=== PATIENT | male | born 1965 | race Two or more races ===

== ENCOUNTER 2017-04-25 06:07 | Day surgery (SDC) | payer OTHER ==
[2017-04-25] VITALS (10 sets, daily range): BP systolic 110–132; BP diastolic 67–94
[~2017-04-25] VITALS: Ht 185.4 cm; Wt 99.8 kg
[~2017-04-25 06:07] MED LIST: Cyclopentolate 1% Opth Sol 2ml LEFT EYE SCH; Phenylephrine 2.5% Op 2ml Soln LEFT EYE SCH; Phenylephrine 2.5% Op 2ml Soln ONE
[2017-04-25] MEDS ORDERED: Cyclopentolate 1% Opth Sol 2ml ONE (06:14)
[2017-04-25] MEDS ORDERED: Cyclopentolate 1% Opth Sol 2ml LEFT EYE SCH (06:30)
[2017-04-25] MEDS: Phenylephrine 2.5% Op 2ml Soln LEFT EYE SCH ×3 (06:34→06:47)
[2017-04-25] MEDS: Cyclopentolate 1% Opth Sol 2ml LEFT EYE SCH ×3 (06:34→06:48)
[2017-04-25] MEDS ORDERED: Kenalog-40 1ml Vial ONE (06:35)
[2017-04-25] MEDS ORDERED: Maxitrol Opth Oint 3.5gm ONE (06:35)
[2017-04-25] MEDS ORDERED: BSS 500ml btl ONE (06:35)
[2017-04-25] MEDS ORDERED: Pred Forte 1% Opth Susp 1ml ONE (06:35)
[2017-04-25] MEDS ORDERED: Tetracaine 0.5% Opth 4ml Soln ONE (06:36)
[2017-04-25] MEDS ORDERED: Kenalog-10 5ml Inj ONE (06:36)
[2017-04-25] MEDS ORDERED: Dexamethasone 4mg/ml vial ONE (06:36)
[2017-04-25] MEDS ORDERED: EPINEPHrine 1mg/1ml Amp ONE (06:36)
[2017-04-25] MEDS ORDERED: Povidone-Iodine 5% opth solution ONE (06:36)
[2017-04-25] MEDS ORDERED: Lidocaine 2% MPF 5ml Vial INJ ONE (06:37)
[2017-04-25] MEDS ORDERED: Bupivacaine 0.75% 30ml vial INJ ONE (06:37)
[2017-04-25] MEDS ORDERED: Goniosol 2.5% Opth Soln - 15ml ONE (06:37)
[2017-04-25] MEDS ORDERED: BSS 15ml BTL ONE (06:37)
--- NOTE | 2017-04-25 06:51 | Pre-Procedure Note/Attestation ---
Pre-Procedure Note/Attestation Complete Prior to Procedure Planned Procedure: left Procedure Narrative: Macula OFF retinal detachment left eye Indications for Procedure Pre-Operative Diagnosis: Macula OFF retinal detachment left eye Attestation I attest that I discussed the nature of the procedure; its benefits; risks and complications; and alternatives (and the risks and benefits of such alternatives ), prior to the procedure, with the patient (or the patient's legal leather goods sales representative). I attest that, if there was a reasonable possibility of needing a blood transfusion, the patient (or the patient's legal leather goods sales representative) was given the [facility] standardized written summary, pursuant to the [place] Blood Safety Act ([place] Health and Safety Code # 1645, as amended). I attest that I re-evaluated the patient just prior to the surgery and that there has been no change in the patient's H&P, except as documented below: WILMER MODI M.D. Apr 25, 2017 06:50
[2017-04-25] MEDS ORDERED: NKM (06:54)
[2017-04-25] MEDS ORDERED: Glycopyrrolate 0.2mg/ml 1ml Vial ONE (07:00)
[2017-04-25] MEDS ORDERED: fentaNYL 100 mcg/2 mL IV ONE (07:00)
[2017-04-25] MEDS ORDERED: Sodium Chloride 10ml vial INJ ONE (07:00)
[2017-04-25] MEDS ORDERED: NS Irrig 1000ml ONE (07:00)
[2017-04-25] MEDS ORDERED: LR 1000ml ONE (07:00)
[2017-04-25] MEDS ORDERED: Ketorolac 30mg Inj ONE (07:00)
[2017-04-25] MEDS ORDERED: Lidocaine 1% MPF 10mg/ml 5ml ONE (07:00)
[2017-04-25] MEDS ORDERED: Sterile Water Irrig 1000ml IRRIG ONE (07:00)
[2017-04-25] MEDS ORDERED: Midazolam 2mg/2ml Inj ONE (07:00)
[2017-04-25] MEDS ORDERED: Propofol 200mg/20ml IV ONE (07:00)
[2017-04-25] MEDS ORDERED: Metoclopramide 10mg/2ml Inj ONE (07:00)
[2017-04-25] MEDS ORDERED: LR 1000ml 1,000 ML IVLG SCH (07:40)
--- NOTE | 2017-04-25 07:44 | Anethesia Preoperative Eval ---
Anesthesia Pre-op PMH/ROS General Date of Evaluation: Apr 25, 2017 Time of Evaluation: 07:00 Anesthesiologist: osman ASA Score: ASA 2 Mallampati Score Class I : Soft palate, uvula, fauces, pillars visible Class II: Soft palate, uvula, fauces visible Class III: Soft palate, base of uvula visible Class IV: Only hard plate visible Mallampati Classification: Class I Surgeon: arnoldo Diagnosis: etinal detachment Surgical Procedure: vitrctomy Anesthesia History: none Family History: no anesthesia problems Allergies: Coded Allergies: No Known Allergies (Unverified , 04/23/17) Medications: see eMAR Anesthesia Pre-op Phys. Exam Physician Exam Last Vital Signs Date Time Temp Pulse Resp B/P (MAP) Pulse Ox O2 Delivery O2 Flow Rate FiO2 04/25/17 06:37 98.4 61 18 132/85 99 Room Air Constitutional: NAD Neurologic: CN 2-12 intact Cardiovascular: RRR Respiratory: CTA Gastrointestinal: S/NT/ND Airway Exam Mallampati Score: Class I MO: full ROM: full Teeth: intact Anesthesia Pre-op A/P Risk Assessment & Plan Plan: mac Pre-Antibiotics Given Within 1 Hr of Incision: Ashvin Wynn M.D. Apr 25, 2017 07:44
[2017-04-25] MEDS ORDERED: Ketorolac 30mg Inj IV PRN (07:45)
[2017-04-25] MEDS ORDERED: DiphenhydrAMINE 50mg/ml Inj IVP PRN (07:45)
[2017-04-25] MEDS ORDERED: fentaNYL 100 mcg/2 mL IV PRN (07:45)
[2017-04-25] MEDS ORDERED: Midazolam 2mg/2ml Inj IVP PRN (07:45)
[2017-04-25] MEDS ORDERED: Metoclopramide 10mg/2ml Inj IVP PRN (07:45)
--- NOTE | 2017-04-25 07:47 | Immediate Post-Op Evaluation ---
Immediate Post-Op Evalulation Immediate Post-Op Evalulation Procedure: Left eye Vitrectomy Date of Evaluation: Apr 25, 2017 Time of Evaluation: 10:00 IV Fluids: 1000 Blood Products: 0 Estimated Blood Loss: 0 Urinary Output: 0 Blood Pressure Systolic: 104 Blood Pressure Diastolic: 64 Pulse Rate: 68 Respiratory Rate: 16 O2 Sat by Pulse Oximetry: 99 Temperature (Fahrenheit): 98 Pain Score (1-10): 0 Nausea: No Vomiting: No Patient Status: awake, reacts, patent Hydration Status: adequate Given Within 1 Hr of Incision: Ashvin Wynn M.D. Apr 25, 2017 07:46
--- NOTE | 2017-04-25 07:48 | 48 Hour Post Anesthesia Eval ---
Post Anesthesia Evaluation Procedure: Left eye Vitrectomy Date of Evaluation: Apr 27, 2017 Time of Evaluation: 10:00 Blood Pressure Systolic: 174 0: 65 Pulse Rate: 66 Respiratory Rate: 15 Temperature (Fahrenheit): 98 O2 Sat by Pulse Oximetry: 99 Airway: patent Nausea: No Vomiting: No Hydration Status: adequate Mental Status/LOC: patient returned to baseline Post-Anesthesia Complications: none Follow-up care needed: patient intructions given Ashvin Jaramillo M.D. Apr 25, 2017 07:48
--- NOTE | 2017-04-25 08:40 | Operative Note - PDOC ---
Operative Note Operative Note Date of Operation/Procedure: Apr 25, 2017 Pre-op Diagnosis: Macula OFF retinal detachment left eye Procedure: ppv/el/afx/c3f8 os Post-op Diagnosis: RD, vh os Post-op Diagnosis: same as pre-op plus Operative Findings: consistent w/pre-op dx studies Surgeon: arnoldo Clerical Proofreader: none Anesthesia: local, MAC Specimen: none Complications: none Condition: stable Estimated Blood Loss: none Drains: none Implant(s) used?: No WILMER MODI M.D. Apr 25, 2017 08:40
[2017-04-25] MEDS ORDERED: Norco 5mg/325mg tab ORAL PRN (08:45)
[2017-04-25] MEDS ORDERED: acetaZOLAMIDE 500mg Sequel ORAL ONE (09:30)
--- NOTE | 2017-04-25 16:31 | Operative Note - Dictated ---
DATE OF OPERATION: 04/25/2017 PREOPERATIVE DIAGNOSES: 1. Macula involving retinal detachment, left eye. 2. Vitreous hemorrhage, left eye. POSTOPERATIVE DIAGNOSES: 1. Macula involving retinal detachment, left eye. 2. Vitreous hemorrhage, left eye. PROCEDURE: Pars plana vitrectomy, endolaser air-fluid exchange C3F8 gas, left eye. PRIMARY SURGEON: Steve Walker M.D. PHYSICIAN NEONATOLOGY: None. ANESTHESIA: Monitored anesthesia care with retrobulbar injection. ESTIMATED BLOOD LOSS: None. IMPLANTS: None. COMPLICATIONS: None. INDICATIONS: The patient had a macula off retinal detachment with severe vision loss. After benefits, alternatives, and risks were discussed, an informed consent was signed. Prognosis was discussed and the patient was told that there will likely be some element of permanent vision loss. DESCRIPTION OF PROCEDURE: The patient was brought to the operating theater and identified. The left eye then received a retrobulbar block using the usual mixture of Marcaine and lidocaine under intravenous sedation with a retrobulbar needle. The left eye was prepped and draped in the usual sterile fashion and a lid speculum was placed. A surgical pause was repeated. A 23-gauge valved trocar/cannula system was inserted in the inferotemporal quadrant at a distance of 3.5 mm posterior to the limbus in an oblique incision pattern with conjunctival displacement . The infusion line was then attached and observed to be in the posterior segment before being turned on. The superotemporal and superonasal cannulae were placed in a similar fashion. The light pipe was placed into the eye and the [employer]ight visualization system was brought into view. A vitrectomy cutter was placed into the eye and core vitrectomy was performed. The patient had a large tear between 12 and 3 o'clock. There were four additional tears between 11 and 12 o'clock that had Laserpexy scars around them. Inferiorly, there was vitreous hemorrhage. There was also several foci of lattice inferiorly. Following core vitrectomy, I performed peripheral vitrectomy with aid of scleral depression provided by my educational program assistant. Next, I used diathermy to felix the breaks and to create a small posterior retinotomy superior to the optic nerve. Endo drainage then was performed with air-fluid exchange and the retina attached beautifully. Laser was given to the retinotomy to the retinal tears under 360 degrees fashion. This included laser around the foci of lattice inferiorly. Next, some additional air-fluid exchange was performed to ensure a complete air fill. The retina was completely attached to this point. The instruments were removed from the eye. A 15% C3F8 gas was diluted by myself and injected through the infusion line and allowed to through the superotemporal cannula. All cannulae were then removed. All sclerotomies were closed with 7-0 Vicryl and all conjunctival defects closed with 6-0 plain gut. Subconjunctival vancomycin and dexamethasone were then injected. The lid speculum and drape were removed. Periocular area cleaned. Atropine drops and Maxitrol ointment were placed on the ocular surface. A 500 mg of Diamox was given orally in the postop area. The patch and shield were then affixed over the closed lids with tape. The patient was taken to recovery area in good spirits and in no pain. He was placed in the face-down position and gas precautions were reviewed in depth. There were no complications. Steve Walker M.D. DR: BASHIR JOB#: [id number] CC:
== END 2017-04-25 10:10 | disposition home or self-care (01) ==
LOC: SUR 06:07
DX: H33.22 Serous retinal detachment, left eye (principal); H43.12 Vitreous hemorrhage, left eye
CPT/HCPCS: 67039; J0171; J0690; J1100; J1885; J2250; J2405; J2704; J2765; J3010; J3370; J3470; J3490; J7120; 94003; 94150

== ENCOUNTER 2017-11-05 07:45 | Day surgery (SDC) | payer OTHER ==
[2017-11-05] VITALS (9 sets, daily range): BP systolic 101–117; BP diastolic 66–75
[~2017-11-05] VITALS: Ht 185.4 cm; Wt 98.4 kg
--- NOTE | 2017-11-05 07:36 | Pre-Procedure Note/Attestation ---
Pre-Procedure Note/Attestation Complete Prior to Procedure Planned Procedure: left Procedure Narrative: cataract extraction with implant left eye Indications for Procedure Pre-Operative Diagnosis: cataract left eye Attestation I attest that I discussed the nature of the procedure; its benefits; risks and complications; and alternatives (and the risks and benefits of such alternatives ), prior to the procedure, with the patient (or the patient's legal product representative). I attest that, if there was a reasonable possibility of needing a blood transfusion, the patient (or the patient's legal product representative) was given the [facility] standardized written summary, pursuant to the [place] Blood Safety Act ([place] Health and Safety Code # 1645, as amended). I attest that I re-evaluated the patient just prior to the surgery and that there has been no change in the patient's H&P, except as documented below: Bebeto Chino MD Nov 05, 2017 07:36
[~2017-11-05 07:45] MED LIST changes: +Akten 3.5% 1ml Btl ONE; +BSS 15ml BTL ONE; +BSS 500ml btl ONE; -Cyclopentolate 1% Opth Sol 2ml LEFT EYE SCH; +Dexamethasone 4mg/ml vial ONE; +EPINEPHrine 1mg/1ml Amp ONE; +Lidocaine 1% MPF 10mg/ml 5ml ONE; +NKM; -Phenylephrine 2.5% Op 2ml Soln LEFT EYE SCH; -Phenylephrine 2.5% Op 2ml Soln ONE; +Povidone-Iodine 5% opth solution ONE; +Sodium Hyaluronate 14 mg/ml 0.85ml ONE; +Tobradex Opth Susp 2.5ml ONE
[2017-11-05] MEDS: Akten 3.5% 1ml Btl LEFT EYE SCH ×3 (08:27→08:47)
[2017-11-05] MEDS: Tobradex Opth Susp 2.5ml LEFT EYE SCH ×3 (08:28→08:48)
[2017-11-05] MEDS: Phenylephrine 2.5% Op 2ml Soln LEFT EYE SCH ×3 (08:28→08:48)
[2017-11-05] MEDS: Flurbiprofen 0.03% Opth Sol 2.5ml LEFT EYE SCH ×3 (08:28→08:48)
[2017-11-05] MEDS: Vigamox Opth Soln 3ml LEFT EYE SCH ×3 (08:28→08:49)
[2017-11-05] MEDS: Tropicamide 1% Opth 15ml Soln LEFT EYE SCH ×3 (08:40→08:47)
[2017-11-05] MEDS ORDERED: NS Irrig 1000ml ONE (09:00)
[2017-11-05] MEDS ORDERED: Sterile Water Irrig 1000ml IRRIG ONE (09:00)
[2017-11-05] MEDS ORDERED: fentaNYL 100 mcg/2 mL IV ONE (09:00)
[2017-11-05] MEDS ORDERED: Midazolam 2mg/2ml Inj ONE (09:00)
[2017-11-05] MEDS ORDERED: LR 1000ml ONE (09:00)
--- NOTE | 2017-11-05 09:32 | Anethesia Preoperative Eval ---
Anesthesia Pre-op PMH/ROS General Date of Evaluation: Nov 05, 2017 Time of Evaluation: 09:00 Anesthesiologist: henri ASA Score: ASA 1 Mallampati Score Class I : Soft palate, uvula, fauces, pillars visible Class II: Soft palate, uvula, fauces visible Class III: Soft palate, base of uvula visible Class IV: Only hard plate visible Mallampati Classification: Class I Surgeon: Matti Diagnosis: cataract Surgical Procedure: cataract extraction left eye Anesthesia History: none Family History: no anesthesia problems Allergies: Coded Allergies: No Known Allergies (Unverified , 04/23/17) Medications: see eMAR Past Medical History Cardiovascular: Denies: HTN, CAD, IL, valve dz, arrhythmia, other Pulmonary: Denies: asthma, COPD, DONNY, other Gastrointestinal/Genitourinary: Denies: GERD, CRI, ESRD, other Neurologic/Psychiatric: Denies: dementia, CVA, depression/anxiety, TIA, other Endocrine: Denies: DM, hypothyroidism, steroids, other HEENT: Reports: cataract (L) Hematology/Immune: Denies: anemia, DVT, bleeding disorder, other PSxH Narrative: elbow surgery, vitrectomy Anesthesia Pre-op Phys. Exam Physician Exam Last Vital Signs Date Time Temp Pulse Resp B/P (MAP) Pulse Ox O2 Delivery O2 Flow Rate FiO2 11/05/17 08:36 98.1 61 20 113/72 97 Room Air 98.1 Constitutional: NAD Neurologic: CN 2-12 intact Cardiovascular: RRR Respiratory: CTA Airway Exam Mallampati Classification 2 Mallampati Score: Class II MO: full ROM: full Dentures: no upper, no lower Anesthesia Pre-op A/P Risk Assessment & Plan Plan: mac Status Change Before Surgery: No Pre-Antibiotics Drug: none Olga Veloz CRNA Nov 05, 2017 09:31
[2017-11-05] MEDS ORDERED: Sodium Hyaluronate 14 mg/ml 0.85ml ONE (09:47)
--- NOTE | 2017-11-05 09:49 | Brief Operative Note ---
Immediate Post Operative Note Operative Note Pre-op Diagnosis: cataract left eye Procedure: phacoemulsification of cataract with implant left eye Post-op Diagnosis: same as pre-op Surgeon: bebeto bell Hygiene Assistant: none Anesthesiologist: blake álvarez crna Anesthesia: MAC Specimen: none Complications: none Condition: stable Fluids: none Estimated Blood Loss: none Drains: none Implant(s) used?: Yes Bebeto Bell MD Nov 05, 2017 09:48
--- NOTE | 2017-11-05 10:08 | Immediate Post-Op Evaluation ---
Immediate Post-Op Evalulation Immediate Post-Op Evalulation Procedure: left eye cataract extraction Date of Evaluation: Nov 05, 2017 Time of Evaluation: 09:47 IV Fluids: 300 Blood Pressure Systolic: 117 Blood Pressure Diastolic: 69 Pulse Rate: 56 Respiratory Rate: 14 O2 Sat by Pulse Oximetry: 99 Temperature (Fahrenheit): 97.3 Nausea: No Vomiting: No Complications none Patient Status: awake, reacts, patent Hydration Status: adequate Drug: none Olga Veloz CRNA Nov 05, 2017 10:08
--- NOTE | 2017-11-05 11:02 | 48 Hour Post Anesthesia Eval ---
Post Anesthesia Evaluation Procedure: left eye cataract extraction Date of Evaluation: Nov 05, 2017 Time of Evaluation: 11:02 Blood Pressure Systolic: 117 0: 69 Pulse Rate: 56 Respiratory Rate: 14 Temperature (Fahrenheit): 97.3 Airway: patent Nausea: No Vomiting: No Hydration Status: adequate Cardiopulmonary Status: stable Mental Status/LOC: patient returned to baseline Follow-up Care/Observations: na Post-Anesthesia Complications: none Follow-up care needed: N/A Olga Veloz CRNA Nov 05, 2017 11:02
--- NOTE | 2017-11-05 23:29 | Operative Note - Dictated ---
DATE OF OPERATION: 11/05/2017 PREOPERATIVE DIAGNOSIS: Dense posterior subcapsular cataract and nuclear sclerotic cataract, left eye. POSTOPERATIVE DIAGNOSIS: Dense posterior subcapsular cataract and nuclear sclerotic cataract, left eye. PROCEDURE: Phacoemulsification cataract of the left eye with placement of posterior chamber intraocular lens. SURGEON: Bebeto Chino M.D. UPTWIST SPINNER: None. ANESTHESIA: MAC/topical. ANESTHESIOLOGIST: Olga Veloz CRNA. INDICATION FOR PROCEDURE: Poor vision left eye. DESCRIPTION OF FINDINGS: Dense cataract left eye status post retinal detachment repair. DESCRIPTION OF PROCEDURE: The patient received a topical anesthetic block consisting of 3.5% Akten eye drops. The eye was prepped and draped in the usual manner. A lid speculum was placed. An operating Zeiss microscope was positioned. The temporal corneal groove was made with the jad blade. A SuperSharp blade made a stab incision at the 6 o'clock position. A 0.1 mL of 1% nonpreserved intracameral lidocaine was injected. Healon was instilled into the anterior chamber and a 2.5/2.8 mm trapezoidal jad blade was used to complete the temporal corneal wound. A cystotome was used to create an anterior capsular flap. Utrata forceps were used to complete the capsulorrhexis. BSS on a cannula was used to hydrodissect the nucleus. The lens nucleus phacoemulsified in a phaco-fracture technique. Remaining cortical material was removed with the I/A and the posterior capsule was polished with the I/A on Cap vac. A posterior capsular scar remained. Healon was instilled in the capsular bag and anterior chamber and an Shah foldable one-piece preloaded posterior chamber intraocular lens, model PCB00, power 17.5 diopter, serial number [id number] was placed in the capsular bag. The I/A tip was used to remove the Healon and position the lens. The wound edge was hydrated with BSS and a blunt-tipped cannula. The wound was checked and found to be watertight. The lid speculum was removed and a drop of TobraDex and Vigamox was placed. A clear plastic shield was taped over the eye. The patient tolerated the procedure well and left the operating room in good condition. Bebeto Chino M.D. ([facility]) DR: SHELLIE JOB#: [id number] CC:
== END 2017-11-05 11:05 | disposition home or self-care (01) ==
LOC: SUR 07:45
DX: H25.042 Posterior subcapsular polar age-related cataract, left eye (principal); H25.12 Age-related nuclear cataract, left eye; E78.5 Hyperlipidemia, unspecified
CPT/HCPCS: 66984; J0171; J1100; J2250; J3010; J7120; V2632; 94003; 94150

== ENCOUNTER 2018-02-10 11:19 | Day surgery (SDC) | payer OTHER ==
[2018-02-10] VITALS (8 sets, daily range): BP systolic 111–149; BP diastolic 70–85
[~2018-02-10] VITALS: Ht 185.4 cm; Wt 94.3 kg
--- NOTE | 2018-02-10 06:18 | Anethesia Preoperative Eval ---
Anesthesia Pre-op PMH/ROS General Date of Evaluation: Feb 10, 2018 Time of Evaluation: 06:15 Anesthesiologist: emma ASA Score: ASA 2 Mallampati Score Class I : Soft palate, uvula, fauces, pillars visible Class II: Soft palate, uvula, fauces visible Class III: Soft palate, base of uvula visible Class IV: Only hard plate visible Mallampati Classification: Class I Surgeon: arnoldo Diagnosis: puckering of macula left eye Surgical Procedure: vitrectomy, membrane stripping, posterior capsulotomy, left eye Anesthesia History: none Social History: smoking - nonsmoker Family History: no anesthesia problems Allergies: Coded Allergies: No Known Allergies (Unverified , 04/23/17) Medications: see eMAR Past Medical History HEENT: Reports: cataract (L), other - retinal detachment PSxH Narrative: nasal fracture repair, left elbow arthroscopy Anesthesia Pre-op Phys. Exam Physician Exam Last Vital Signs Date Time Temp Pulse Resp B/P (MAP) Pulse Ox O2 Delivery O2 Flow Rate FiO2 02/10/18 12:25 97.7 50 20 123/85 (98) 100 97.7 02/10/18 11:59 Room Air Constitutional: NAD Neurologic: CN 2-12 intact Cardiovascular: RRR Respiratory: CTA Gastrointestinal: S/NT/ND Airway Exam Mallampati Score: Class II MO: full Neck: flexible TMD: 2fb ROM: limited Teeth: intact Anesthesia Pre-op A/P Risk Assessment & Plan Assessment: asa2 Plan: mac Status Change Before Surgery: No Pre-Antibiotics Drug: Charmaine Oviedo MD Feb 10, 2018 06:18
[~2018-02-10 11:19] MED LIST changes: -Akten 3.5% 1ml Btl ONE; +Atropine Inj 1mg/10ml Syr IV PRN; -BSS 15ml BTL ONE; -BSS 500ml btl ONE; -Dexamethasone 4mg/ml vial ONE; +DiphenhydrAMINE 50mg/ml Inj IVP PRN; -EPINEPHrine 1mg/1ml Amp ONE; +LR 1000ml 1,000 ML IVLG SCH; -Lidocaine 1% MPF 10mg/ml 5ml ONE; +Midazolam 2mg/2ml Inj IVP PRN; -Povidone-Iodine 5% opth solution ONE; -Sodium Hyaluronate 14 mg/ml 0.85ml ONE; -Tobradex Opth Susp 2.5ml ONE; +fentaNYL 100 mcg/2 mL IV PRN
[2018-02-10] MEDS ORDERED: Maxitrol Opth Oint 3.5gm ONE (11:48)
[2018-02-10] MEDS ORDERED: Lidocaine 2% MPF 5ml Vial INJ ONE (11:48)
[2018-02-10] MEDS ORDERED: Kenalog-40 1ml Vial ONE (11:48)
[2018-02-10] MEDS ORDERED: EPINEPHrine 1mg/1ml Amp ONE (11:48)
[2018-02-10] MEDS ORDERED: BSS 15ml BTL ONE (11:49)
[2018-02-10] MEDS ORDERED: Kenalog-10 5ml Inj ONE (11:49)
[2018-02-10] MEDS ORDERED: Vancomycin 1gm inj IVPB ONE (11:49)
[2018-02-10] MEDS ORDERED: Pred Forte 1% Opth Susp 1ml ONE (11:49)
[2018-02-10] MEDS ORDERED: BSS 500ml btl ONE (11:49)
[2018-02-10] MEDS ORDERED: Bupivacaine 0.75% 30ml vial INJ ONE (11:50)
[2018-02-10] MEDS ORDERED: Povidone-Iodine 5% opth solution ONE (11:50)
[2018-02-10] MEDS ORDERED: Tetracaine 0.5% Opth 4ml Soln ONE (11:50)
[2018-02-10] MEDS ORDERED: Triamcinolone 40mg/ml PF Vial ONE (11:50)
[2018-02-10] MEDS ORDERED: Cyclopentolate 1% Opth Sol 2ml ONE (11:52)
[2018-02-10] MEDS ORDERED: Phenylephrine 2.5% Op 2ml Soln ONE (11:52)
[2018-02-10] MEDS: Phenylephrine 2.5% Op 2ml Soln LEFT EYE SCH ×3 (11:53→12:15)
[2018-02-10] MEDS: Cyclopentolate 1% Opth Sol 2ml LEFT EYE SCH ×3 (11:53→12:15)
[2018-02-10] MEDS ORDERED: Indocyanine Green 25mg Inj INJ ONE (12:00)
[2018-02-10] MEDS ORDERED: Dexamethasone 4mg/ml vial ONE (12:42)
[2018-02-10] MEDS ORDERED: Sodium Hyaluronate 10 mg/ml 0.85ml ONE (12:42)
[2018-02-10] MEDS ORDERED: Goniosol 2.5% Opth Soln - 15ml ONE (12:42)
--- NOTE | 2018-02-10 13:41 | Pre-Procedure Note/Attestation ---
Pre-Procedure Note/Attestation Complete Prior to Procedure Planned Procedure: left Procedure Narrative: ppv/mp/afx os Indications for Procedure Pre-Operative Diagnosis: macular pucker left eye Attestation I attest that I discussed the nature of the procedure; its benefits; risks and complications; and alternatives (and the risks and benefits of such alternatives ), prior to the procedure, with the patient (or the patient's legal event sales representative). I attest that, if there was a reasonable possibility of needing a blood transfusion, the patient (or the patient's legal event sales representative) was given the [facility] standardized written summary, pursuant to the [place] Blood Safety Act ([place] Health and Safety Code # 1645, as amended). I attest that I re-evaluated the patient just prior to the surgery and that there has been no change in the patient's H&P, except as documented below: WILMER MODI M.D. Feb 10, 2018 13:41
[2018-02-10] MEDS ORDERED: Vigamox Opth Soln 3ml ONE (13:59)
[2018-02-10] MEDS ORDERED: Midazolam 2mg/2ml Inj ONE (14:00)
[2018-02-10] MEDS ORDERED: Atropine Sulfate 0.4mg/ml inj ONE (14:00)
[2018-02-10] MEDS ORDERED: fentaNYL 100 mcg/2 mL IV ONE (14:00)
[2018-02-10] MEDS ORDERED: Propofol 200mg/20ml IV ONE (14:00)
[2018-02-10] MEDS ORDERED: LR 1000ml ONE (14:00)
[2018-02-10] MEDS ORDERED: Lidocaine 1% MPF 10mg/ml 5ml ONE (14:00)
--- NOTE | 2018-02-10 15:05 | Operative Note - PDOC ---
Operative Note Operative Note Date of Operation/Procedure: Feb 10, 2018 Chief Complaint: vision loss os Pre-op Diagnosis: macular pucker left eye Procedure: ppv/mp/ilm peel/afx os Post-op Diagnosis: same as pre-op Operative Findings: consistent w/pre-op dx studies Surgeon: arnoldo Anesthesia: MAC Specimen: none Complications: none Condition: stable Estimated Blood Loss: none Drains: none Implant(s) used?: No Description of Procedure erm found, erm an ilm peeled. +cme seen. attached WILMER MODI M.D. Feb 10, 2018 15:05
--- NOTE | 2018-02-10 15:23 | Immediate Post-Op Evaluation ---
Immediate Post-Op Evalulation Immediate Post-Op Evalulation Procedure: vitrectomy, membrane stripping, posterior capsulotomy left eye Date of Evaluation: Feb 10, 2018 Time of Evaluation: 15:13 IV Fluids: 700ml lr Blood Products: none Estimated Blood Loss: negligible Blood Pressure Systolic: 111 Blood Pressure Diastolic: 79 Pulse Rate: 49 Respiratory Rate: 18 O2 Sat by Pulse Oximetry: 98 Temperature (Fahrenheit): 97.2 Pain Score (1-10): 0 Nausea: No Vomiting: No Complications none Patient Status: awake, reacts, patent Hydration Status: adequate Drug: Charmaine Oviedo MD Feb 10, 2018 15:23
--- NOTE | 2018-02-10 15:24 | 48 Hour Post Anesthesia Eval ---
Post Anesthesia Evaluation Procedure: vitrectomy, membrane stripping, posterior capsulotomy left eye Date of Evaluation: Feb 10, 2018 Time of Evaluation: 15:15 Blood Pressure Systolic: 112 0: 77 Pulse Rate: 56 Respiratory Rate: 18 Temperature (Fahrenheit): 97.2 O2 Sat by Pulse Oximetry: 99 Airway: patent Nausea: No Vomiting: No Pain Intensity: 0 Hydration Status: adequate Cardiopulmonary Status: stable Mental Status/LOC: patient returned to baseline Post-Anesthesia Complications: none Follow-up care needed: N/A Charmaine Thurston MD Feb 10, 2018 15:24
--- NOTE | 2018-02-10 18:15 | Operative Note - Dictated ---
DATE OF OPERATION: 02/10/2018 PREOPERATIVE DIAGNOSES: 1. Epiretinal membrane, left eye. 2. Posterior capsule opacification, left eye. PROCEDURES: Pars plana vitrectomy, posterior capsulotomy, membrane peel, ILM peel, and air-fluid exchange, left eye. PRIMARY SURGEON: Steve Walker M.D. COTA: None. ANESTHESIA: Monitored anesthesia care with retrobulbar injection. ESTIMATED BLOOD LOSS: None. COMPLICATIONS: None. INDICATIONS: The patient had a significant ERM causing distortion of the macula as well as distortion of his vision with diminished vision. After benefits, alternatives, and risks were discussed, an informed consent was signed. DESCRIPTION OF PROCEDURE: The patient was brought to the operating theater and identified. The left eye was then given a retrobulbar block using the usual mixture of Marcaine and lidocaine under intravenous sedation with a retrobulbar needle. The left eye was then prepped and draped in the usual sterile fashion with a lid speculum placed. Under the operating microscope, a 23-gauge valved trocar/cannula was inserted in the inferotemporal quadrant at a distance of 3.5 mm posterior to the limbus using conjunctival displacement in an oblique incision pattern. The infusion line was attached and observed and then turned on. The superotemporal and superonasal cannulae were placed in a similar fashion. The IOL could be seen and was well centered and there was a dense PCO in the visual axis. I used a vitrectomy cutter to create a posterior capsulotomy and the visual access was now very clear. Next, I brought the [employer] visualization system into place and placed the light pipe and vitrectomy cutter into the eye. An evidence of a previously detached retina was seen. The retina was nicely attached with 360 degrees of retinopexy scars. I could see a dense ERM in the macula. I did not visualize vitreous. I attempted some peripheral vitreous shaving, but no appreciable vitreous was remaining due to the previous vitrectomy. Next, I placed ICG, which was diluted under the macula and removed this after 20 seconds. Then using a macular contact lens, I used a Mathew brush and a forceps to peel an epiretinal membrane off of the entire macula in one large piece. I then placed some additional ICG on the macula and at this time, the ICG actually stained the ILM. The ICG was removed after 20 seconds. I then used a combination of a Mathew brush and micro forceps to peel the ILM off of the macula. Next, under the [employer] visualization system, I performed additional vitrectomy and removed any loose fragments of ILM from the eye. I then used an extrusion cannula to complete an air-fluid exchange. Next, the instruments removed from the eye followed by the cannulas. The superonasal cannula was leaking and I opened the conjunctiva with a Leslie scissors. I used a 7-0 Vicryl to close the sclerotomy and a 6-0 plain gut to close the conjunctiva. Next, I gave subconjunctival dexamethasone and vancomycin. The lid speculum and drape were then removed from the eye. The periocular area cleaned and atropine drop, Vigamox drop, and neomycin polymyxin ointment was placed on the ocular surface and a patch and shield were affixed over the closed lids with tape. The patient was taken to recovery area in good spirits and in no pain. There were no complications. Steve Walker M.D. DR: ALETHEA JOB#: [id number] CC:
== END 2018-02-10 16:50 | disposition home or self-care (01) ==
LOC: SUR 11:19
DX: H35.372 Puckering of macula, left eye (principal); E78.5 Hyperlipidemia, unspecified; R00.1 Bradycardia, unspecified; E55.9 Vitamin D deficiency, unspecified
CPT/HCPCS: 67042; J0171; J0461; J1100; J2250; J2704; J3010; J3370; J3470; J3490; 94003; 94150; J3300